=== PATIENT | female | born 1975 | race Caucasian/White ===

== ENCOUNTER 2017-03-08 14:31 | Emergency (ER) | payer MEDICAID ==
[~2017-03-08] VITALS: Ht 177.8 cm; Wt 68.0 kg
[~2017-03-08 14:31] MED LIST: LAMO200T2 PO; PRO40 PO; SUCR1TAB78 PO; TOPI100T11 PO
[2017-03-08 14:37] VITALS: BP_SYST 136
[2017-03-08] MEDS ORDERED: NACL 0.9% 1,000 ML IV ONE (15:26)
[2017-03-08] MEDS ORDERED: DIPHENOXYLATE HCL/ATROP SULF 2.5 MG TAB PO ONE (15:30)
[2017-03-08] MEDS ORDERED: KETOROLAC TROMETHAMINE 30 MG VIAL IVP ONE (15:30)
[2017-03-08 16:07] LABS: BASOPHILS % (AUTO) 0.6 % (0.0-2.0); EOSINOPHILS % (AUTO) 0.6 % (0.0-4.0); HEMOGLOBIN 13.9 g/dL (12.0-16.0); LYMPHOCYTES # (AUTO) 1.8 K/uL (1.0-5.5); LYMPHOCYTES % (AUTO) 30.3 % (20.5-51.5); MEAN CORPUSCULAR HEMOGLOBIN 31 pg (27-31); MEAN CORPUSCULAR HGB CONC 33 % (32-36); MEAN CORPUSCULAR VOLUME 94 fL (79.0-98.0); MONOCYTES # (AUTO) 0.2 K/uL (0.0-1.0); MONOCYTES % (AUTO) 3.8 % (1.7-9.3); NEUTROPHILS # (AUTO) 4.1 K/uL (1.8-7.7); NEUTROPHILS % (AUTO) 64.7 % (40.0-70.0); PLATELET COUNT (AUTO) 198 K/uL (130-430); RED BLOOD CELL COUNT(AUTO) 4.49 MIL/uL (4.2-6.2); RED CELL DISTRIBUTION WIDTH 12.9 % (9.0-15.0); WHITE BLOOD COUNT (AUTO) 6.1 K/uL (4.8-10.8)
[2017-03-08] MEDS ORDERED: fentaNYL CITRATE/PF 100 MCG/2 ML AMP IVP ONE (16:30)
[2017-03-08 16:31] LABS: BILIRUBIN,URINE NEGATIVE (NEGATIVE); BLOOD, URINE 1+ (NEGATIVE); CLARITY/URINE HAZY (CLEAR); COLOR,URINE YELLOW (YELLOW); GLUCOSE,URINE NEGATIVE (NEGATIVE); KETONES,URINE NEGATIVE (NEGATIVE); LEUKOCYTE ESTERASE ,URINE 2+ (NEGATIVE); NITRITE, URINE NEGATIVE (NEGATIVE); PROTEIN URINE NEGATIVE (NEGATIVE); UROBILINOGEN,URINE 0.2 (0.2-1.0)
[2017-03-08 16:31] LABS: CALCIUM 8.9 mg/dL (8.4-11.0); CREATININE 0.66 mg/dL (0.55-1.30); POTASSIUM 3.6 mmol/L (3.5-5.1)
[2017-03-08 16:37] LABS: ALBUMIN 4.4 g/dL (3.4-4.8); TOTAL BILIRUBIN 0.3 mg/dL (0.0-1.0)
[2017-03-08 16:49] LABS: BACTERIA,URINE MODERATE /HPF (None Seen); MUCUS,URINE None Seen /LPF (None Seen); WBC,URINE 50-80 /HPF (0-3)
[2017-03-08] MEDS ORDERED: cefTRIAXone 1 GM IVPB PREMIX 50 ML IV ONE (17:15)
[2017-03-08 17:30] VITALS: BP_SYST 122
== END 2017-03-08 17:30 | disposition home or self-care (01) ==
LOC: SED 14:31
DX: N39.0 Urinary tract infection, site not specified (principal); R03.0 Elevated blood-pressure reading, without diagnosis of hypertension; J45.909 Unspecified asthma, uncomplicated; F41.9 Anxiety disorder, unspecified; F43.10 Post-traumatic stress disorder, unspecified
CPT/HCPCS: 36415; 80053; 81000; 81025; 83690; 85025; 87086; 96361; 96374; 96375; 99284; J1885; J3010; J7030

== ENCOUNTER 2017-07-23 03:44 | Inpatient (IN) | payer MEDICAID ==
[~2017-07-23] VITALS: Ht 177.8 cm; Wt 65.8 kg
[2017-07-23 03:48] VITALS: BP_SYST 108
[2017-07-23] MEDS ORDERED: NACL 0.9% 1,000 ML IV ONE (04:15)
[2017-07-23] MEDS ORDERED: KETOROLAC TROMETHAMINE 30 MG VIAL IVP ONE ×3 (04:15→23:00)
[2017-07-23] MEDS ORDERED: ONDANSETRON HCL 4 MG/2 ML VIAL IVP ONE ×4 (04:15→23:00)
[2017-07-23] MEDS ORDERED: fentaNYL CITRATE/PF 100 MCG/2 ML AMP IVP ONE ×2 (04:45→21:55)
[2017-07-23 04:52] LABS: WHITE BLOOD COUNT (AUTO) 9.3 K/uL (4.8-10.8)
[2017-07-23 04:53] LABS: BASOPHILS % (AUTO) 0.4 % (0.0-2.0); EOSINOPHILS % (AUTO) 0.5 % (0.0-4.0); HEMATOCRIT 39.5 % (36-48); HEMOGLOBIN 12.9 g/dL (12.0-16.0); LYMPHOCYTES # (AUTO) 1.6 K/uL (1.0-5.5); LYMPHOCYTES % (AUTO) 16.9 % (20.5-51.5); MEAN CORPUSCULAR HEMOGLOBIN 31 pg (27-31); MEAN CORPUSCULAR HGB CONC 33 % (32-36); MEAN CORPUSCULAR VOLUME 94 fL (79.0-98.0); MONOCYTES # (AUTO) 0.4 K/uL (0.0-1.0); MONOCYTES % (AUTO) 4.6 % (1.7-9.3); NEUTROPHILS # (AUTO) 7.3 K/uL (1.8-7.7); NEUTROPHILS % (AUTO) 77.6 % (40.0-70.0); PLATELET COUNT (AUTO) 195 K/uL (130-430); RED BLOOD CELL COUNT(AUTO) 4.21 MIL/uL (4.2-6.2); RED CELL DISTRIBUTION WIDTH 12.9 % (9.0-15.0)
[2017-07-23 05:00] LABS: CALCIUM 9.2 mg/dL (8.4-11.0); CREATININE 0.59 mg/dL (0.55-1.30); POTASSIUM 3.8 mmol/L (3.5-5.1)
[2017-07-23 05:05] LABS: TOTAL BILIRUBIN 0.6 mg/dL (0.0-1.0)
[2017-07-23] MEDS ORDERED: MORPHINE 2 MG/ML INJ. SYRINGE IVP ONE ×2 (05:15→06:00)
[2017-07-23] MEDS ORDERED: cefTRIAXone 1 GM VIAL IM ONE (06:15)
[2017-07-23] MEDS ORDERED: metroNIDAZOLE 500 mg/NS 100 ML IV ONE (06:15)
[2017-07-23] MEDS ORDERED: cefTRIAXone 1 GM IVPB PREMIX 50 ML IV ONE (06:30)
[2017-07-23 06:40] VITALS: BP_SYST 103
[2017-07-23] MEDS: ONDANSETRON HCL 4 MG/2 ML VIAL IVP PRN ×2 (07:09→12:30)
[2017-07-23] MEDS: MORPHINE 4 MG/ML INJ. SYRINGE IVP PRN ×5 (07:10→18:24)
[2017-07-23 08:17] VITALS: BP_SYST 108
[2017-07-23 08:24] LABS: BILIRUBIN,URINE NEGATIVE (NEGATIVE); BLOOD, URINE 2+ (NEGATIVE); CLARITY/URINE CLEAR (CLEAR); COLOR,URINE YELLOW (YELLOW); GLUCOSE,URINE NEGATIVE (NEGATIVE); KETONES,URINE NEGATIVE (NEGATIVE); LEUKOCYTE ESTERASE ,URINE 1+ (NEGATIVE); NITRITE, URINE NEGATIVE (NEGATIVE); PROTEIN URINE NEGATIVE (NEGATIVE); UROBILINOGEN,URINE 0.2 (0.2-1.0)
[2017-07-23 09:18] LABS: BACTERIA,URINE FEW /HPF (None Seen)
[2017-07-23 09:19] LABS: MUCUS,URINE None Seen /LPF (None Seen)
[2017-07-23] MEDS: TOPIRAMATE 100 MG TABLET(Topamax) PO SCH (09:58)
[2017-07-23 12:00] VITALS: BP_SYST 96
[2017-07-23 16:00] VITALS: BP_SYST 115
[2017-07-23] MEDS ORDERED: KETOROLAC TROMETHAMINE 15 MG VIAL IVP PRN (16:15)
[2017-07-23] MEDS ORDERED: DIPHENHYDRAMINE INJ 50 MG/ML VIAL IVP PRN (16:45)
[2017-07-23] MEDS ORDERED: MAG-AL HYDROX/SIMETH 30 ML UDC PO PRN (16:45)
[2017-07-23] MEDS ORDERED: MAG-AL HYDROX/SIMETH 30 ML UDC PO ONE (16:45)
[2017-07-23] MEDS ORDERED: BENZOCAINE/MENTHOL 1 EACH LOZENGE MM PRN ×2 (16:45)
[2017-07-23] MEDS ORDERED: metroNIDAZOLE 500 mg/NS 100 ML IV SCH (16:45)
[2017-07-23] MEDS: D5LR 1,000 ML IV SCH (17:57)
[2017-07-23] MEDS ORDERED: FAMOTIDINE PF 20 MG/2 ML VIAL IVP ONE (18:00)
[2017-07-23] MEDS: metroNIDAZOLE 500 mg/NS 100 ML IV SCH (18:18)
[2017-07-23 20:00] VITALS: BP_SYST 102
[2017-07-23] MEDS ORDERED: METOCLOPRAMIDE HCL 10 MG/2 ML VIAL IVP ONE ×2 (20:30)
[2017-07-23] MEDS ORDERED: LIDOCAINE 1% 10 MG/ML, 20 ML MDV INJ ONE (21:55)
[2017-07-23] MEDS ORDERED: NS IRRIG SOLN 1000 ML IR ONE (21:55)
[2017-07-23] MEDS ORDERED: SEVOFLURANE 15 MIN GAS INH ONE (21:55)
[2017-07-23] MEDS ORDERED: LR 1,000 ML IV.SOLN IV ONE (21:55)
[2017-07-23] MEDS ORDERED: PROPOFOL 200MG/ 20ML VIAL (DIPRIVAN) IV ONE (21:55)
[2017-07-23] MEDS ORDERED: MIDAZOLAM HCL 5 MG/5 ML VIAL IVP ONE (21:55)
[2017-07-23] MEDS ORDERED: MEPERIDINE HCL/PF 100 MG/ML AMP IM ONE (21:55)
[2017-07-23] MEDS ORDERED: BUPIVACAINE /PF 0.25% 30 ML VIAL INJ ONE (21:55)
[2017-07-23] MEDS ORDERED: DEXAMETHASONE SOD PHOSPHATE 4 MG/ML VIAL IVP ONE (21:55)
[2017-07-23 22:19] LABS: INR 1.1 (0.8-1.2); PROTHROMBIN TIME 10.7 SECS (9.5-12.5)
[2017-07-23] MEDS ORDERED: MEPERIDINE HCL/PF 50 MG/ML AMP ONE (22:22)
[2017-07-23] MEDS ORDERED: ONDANSETRON HCL 4 MG/2 ML VIAL ONE (22:22)
[2017-07-23] MEDS ORDERED: HYDROmorphone 1 MG INJ. 1 MG/ML AMPUL IVP PRN (23:00)
[2017-07-23] MEDS ORDERED: fentaNYL CITRATE/PF 100 MCG/2 ML AMP IVP PRN (23:00)
[2017-07-23] MEDS ORDERED: MEPERIDINE HCL/PF 25 MG/ML DISP.SYRIN IVP PRN (23:00)
[2017-07-23] MEDS ORDERED: NALOXONE HCL 0.4 MG/ML AMP (NARCAN) IVP ONE (23:00)
[2017-07-23] MEDS ORDERED: MIDAZOLAM HCL 5 MG/5 ML VIAL IVP PRN (23:00)
[2017-07-24] VITALS: BP_SYST 85
[2017-07-24] MEDS ORDERED: NACL 0.9% 1,000 ML IV ONE (02:00)
[2017-07-24] MEDS: metroNIDAZOLE 500 mg/NS 100 ML IV SCH ×2 (02:20→09:39)
[2017-07-24 07:14] LABS: CALCIUM 8.2 mg/dL (8.4-11.0); CREATININE 0.59 mg/dL (0.55-1.30); POTASSIUM 4.3 mmol/L (3.5-5.1)
[2017-07-24 08:06] VITALS: BP_SYST 103
[2017-07-24] MEDS: TOPIRAMATE 100 MG TABLET(Topamax) PO SCH (08:26)
[2017-07-24] MEDS: D5LR 1,000 ML IV SCH (08:26)
[2017-07-24] MEDS: MORPHINE 4 MG/ML INJ. SYRINGE IVP PRN ×2 (08:27→10:54)
[2017-07-24 08:56] LABS: BASOPHILS % (AUTO) 0.1 % (0.0-2.0); HEMATOCRIT 32.4 % (36-48); HEMOGLOBIN 10.8 g/dL (12.0-16.0); LYMPHOCYTES # (AUTO) 0.4 K/uL (1.0-5.5); LYMPHOCYTES % (AUTO) 7.7 % (20.5-51.5); MEAN CORPUSCULAR HEMOGLOBIN 31 pg (27-31); MEAN CORPUSCULAR HGB CONC 33 % (32-36); MEAN CORPUSCULAR VOLUME 95 fL (79.0-98.0); MONOCYTES # (AUTO) 0.2 K/uL (0.0-1.0); MONOCYTES % (AUTO) 3.4 % (1.7-9.3); NEUTROPHILS # (AUTO) 4.6 K/uL (1.8-7.7); NEUTROPHILS % (AUTO) 88.8 % (40.0-70.0); PLATELET COUNT (AUTO) 153 K/uL (130-430); RED BLOOD CELL COUNT(AUTO) 3.42 MIL/uL (4.2-6.2); RED CELL DISTRIBUTION WIDTH 12.6 % (9.0-15.0)
[2017-07-24] MEDS ORDERED: FAMOTIDINE PF 20 MG/2 ML VIAL IVP SCH (09:00)
[2017-07-24] MEDS ORDERED: DOCUSATE SODIUM 100 MG CAPSULE PO SCH (09:00)
[2017-07-24 09:07] LABS: WHITE BLOOD COUNT (AUTO) 5.2 K/uL (4.8-10.8)
[2017-07-24 09:50] LABS: ERYTHROCYTE SEDIMENTATION RATE 20 MM/HR (0-20)
[2017-07-24 12:45] VITALS: BP_SYST 116
[2017-07-24] MEDS ORDERED: LACT1TAB13 PO (13:13)
[2017-07-24] MEDS ORDERED: LEVO500T20 PO (13:14)
[2017-07-24] MEDS ORDERED: METR500T PO (13:14)
[2017-07-24] MEDS ORDERED: TYC3 PO (13:22)
[2017-07-24 14:14] VITALS: BP_SYST 116
[2017-07-27 15:08] LABS: CHLAMYDIA TRACHOMATIS NAA Negative (Negative); NEISSERIA GONORRHOEAE NAA Negative (Negative)
== END 2017-07-24 15:20 | disposition home or self-care (01) | DRG 226 ==
LOC: SED 03:44 → SMU 06:14
PROVIDERS: ADMIT Internal Medicine; ATTEND Internal Medicine
PROC: 0D9Q0ZZ Drainage of Anus, Open Approach (ICD-10-PCS; principal; 2017-07-23 21:30)
DX: K61.1 Rectal abscess (principal); F17.210 Nicotine dependence, cigarettes, uncomplicated; R19.7 Diarrhea, unspecified; G89.29 Other chronic pain; K58.9 Irritable bowel syndrome, unspecified; Z79.899 Other long term (current) drug therapy
CPT/HCPCS: 36415; 80048; 80053; 81000-TC; 84703; 85025; 85610-TC; 85651-TC; 85730-TC; 87040-TC; 87070-TC; 87075-TC; 87086; 87491; 87591; 96361; 96365; 96367; 96375; 96376; 99285; J0696; J1100; J1200; J1885; J1956; J2001; J2175; J2250; J2270; J2405; J2704; J3010; J3490; J7030; J7120

== ENCOUNTER 2017-09-28 09:00 | Emergency (ER) | payer MEDICAID ==
[~2017-09-28] VITALS: Ht 177.8 cm; Wt 65.8 kg
[~2017-09-28 09:00] MED LIST changes: +LACT1TAB13 PO; -LAMO200T2 PO; +LEVO500T20 PO; +METR500T PO; -PRO40 PO; -SUCR1TAB78 PO; +TOP25 PO; -TOPI100T11 PO; +TYC3 PO
[2017-09-28 09:06] VITALS: BP_SYST 116
[2017-09-28] MEDS ORDERED: MORPHINE 4 MG/ML INJ. SYRINGE IVP ONE (09:30)
[2017-09-28] MEDS ORDERED: DIATR MEGLU/DIATRIZ SOD 30 ML SOLUTION PO ONE (09:37)
[2017-09-28] MEDS ORDERED: NACL 0.9% 1,000 ML IV ONE (10:00)
[2017-09-28] MEDS ORDERED: ONDANSETRON HCL 4 MG/2 ML VIAL IVP ONE (10:00)
[2017-09-28 14:09] VITALS: BP_SYST 114
== END 2017-09-28 14:09 | disposition home or self-care (01) ==
LOC: SED 09:00
DX: K61.1 Rectal abscess (principal); J45.909 Unspecified asthma, uncomplicated; F43.10 Post-traumatic stress disorder, unspecified; F41.9 Anxiety disorder, unspecified; Z79.899 Other long term (current) drug therapy; G43.909 Migraine, unspecified, not intractable, without status migrainosus
CPT/HCPCS: 74176; 81025; 96361; 96374; 96375; 99284; J2270; J2405; J7030; Q9964